=== PATIENT | female | born 1980 | race Caucasian/White ===

== ENCOUNTER 2017-02-10 05:44 | Inpatient (IN) | payer OTHER ==
[~2017-02-10] VITALS: Ht 160 cm; Wt 77.1 kg
[2017-02-11 03:18] LABS: HEMOGLOBIN 10.2 gm/dl (12.3-15.3)
== END 2017-02-13 14:35 | disposition home or self-care (01) | DRG 766 ==
LOC: OB 05:44
PROVIDERS: ADMIT Obstetrics & Gynecology
PROC: 10D00Z1 Extraction of Products of Conception, Low, Open Approach (ICD-10-PCS; principal; 2017-02-10 09:30)
DX: O34.211 Maternal care for low transverse scar from previous cesarean delivery (principal); N85.8 Other specified noninflammatory disorders of uterus; O99.52 Diseases of the respiratory system complicating childbirth; Z3A.39 39 weeks gestation of pregnancy; Z37.0 Single live birth; O99.334 Smoking (tobacco) complicating childbirth; F17.210 Nicotine dependence, cigarettes, uncomplicated; J45.909 Unspecified asthma, uncomplicated; O75.89 Other specified complications of labor and delivery; G40.909 Epilepsy, unspecified, not intractable, without status epilepticus; F12.90 Cannabis use, unspecified, uncomplicated; L81.8 Other specified disorders of pigmentation
CPT/HCPCS: 36415; 80307; 81001; 82800; 85014; 85018; 85025; C9113; J1580; J2300; J2405; J2590; J2765; J7120; Q0163